=== PATIENT | female | born 1945 | race Caucasian/White ===

== ENCOUNTER 2025-02-15 18:27 | Inpatient (IN) | payer OTHER ==
[~2025-02-15] VITALS: Ht 182.8 cm; Wt 47.3 kg
[~2025-02-15 18:27] MED LIST: AMLODIPINE BES2.5 MG PO; VITAMIN D350 MC2 PO
[2025-02-15 18:37] VITALS: BP 139/52
[2025-02-15] MEDS ORDERED: LORazepam 1 MG TAB PO PRN (18:50)
[2025-02-15] MEDS ORDERED: Ziprasidone Mesylate 20 MG VIAL IM PRN (18:55)
[2025-02-15] MEDS ORDERED: HYDROXYZINE 10 MG/5 ML PO PRN (18:55)
[2025-02-15] MEDS ORDERED: hydrOXYzine hydrochloride 50 MG/ML VIAL IM PRN (18:55)
[2025-02-15] MEDS ORDERED: ACETAMINOPHEN 325 MG TAB PO PRN (19:00)
[2025-02-15] MEDS ORDERED: MG-AL HYDROXIDE/SIMETICONE 30 ML UDC PO PRN (19:00)
[2025-02-15] MEDS ORDERED: hydrOXYzine 50 MG CAP PO PRN (19:00)
[2025-02-15] MEDS ORDERED: Water, Sterile 10 ML VIAL IM PRN (19:00)
[2025-02-15] MEDS ORDERED: Magnesium Hydroxide 30 ML UDC PO PRN (19:00)
[2025-02-15] MEDS ORDERED: Menthol/Zinc Oxide 4 GM THIN T PRN (19:05)
[2025-02-15 19:58] VITALS: BP 139/52
[2025-02-15] MEDS ORDERED: Mirtazapine 15 MG TAB PO SCH (21:00)
[2025-02-16 08:16] VITALS: BP 168/70
[2025-02-16] MEDS ORDERED: CYANOCOBALAMIN 500 MCG TAB PO SCH (09:00)
[2025-02-16] MEDS ORDERED: Rivastigmine Tartrate 4.6 MG/24 HR PATCH T SCH (09:00)
[2025-02-16 20:00] VITALS: BP 118/74
[2025-02-16] MEDS ORDERED: Memantine Hydrochloride 5 MG TAB PO SCH (21:00)
[2025-02-17] MEDS ORDERED: amLODIPine besylate 2.5 MG TAB PO SCH (09:00)
[2025-02-17] MEDS ORDERED: Cholecalciferol 2,000 UNIT TABLET (50 MCG) PO SCH (09:00)
[2025-02-17] MEDS ORDERED: Rivastigmine Tartrate 9.5 MG/24 HR PATCH T SCH (09:00)
[2025-02-17 09:03] VITALS: BP 126/66
[2025-02-17 20:00] VITALS: BP 119/59
[2025-02-18 20:00] VITALS: BP 159/77
[2025-02-19 08:00] VITALS: BP 99/54
[2025-02-19 20:00] VITALS: BP 133/82
[2025-02-20 07:46] VITALS: BP 108/88
[2025-02-20 20:00] VITALS: BP 108/88
[2025-02-20] MEDS ORDERED: Memantine Hydrochloride 5 MG TAB PO SCH (21:00)
[2025-02-21 08:27] VITALS: BP 122/72
[2025-02-21] MEDS ORDERED: RIVASTIGMINE 13.3 MG/24 HR TDM T SCH (09:00)
[2025-02-21 20:00] VITALS: BP 112/60
[2025-02-21] MEDS ORDERED: Memantine Hydrochloride 10 MG TAB PO SCH (21:00)
[2025-02-22 08:00] VITALS: BP 122/76
[2025-02-22 20:00] VITALS: BP 139/61
[2025-02-23 06:56] LABS: BASO % 0.8 % (0.0-1.0); EOS % 1.1 % (1.0-4.0); HEMATOCRIT 35.7 % (37.0-47.0); MEAN CELL VOLUME 91.5 fl (81.0-99.0); MEAN CORPUSCULAR HGB 28.7 pg (27.0-31.0); MEAN CORPUSCULAR HGB CONC 31.4 g/dl (33.0-37.0); MEAN PLATELET VOLUME 8.3 fl (9.6-12.3); MONO # 0.3 10*3/uL (0.1-1.0); NEUT # 1.6 10*3/uL (2.3-7.9); NEUT % 45.4 % (47.0-73.0); PLATELET COUNT AUTOMATED 188 10*3/uL (130-400); RED CELL DISTRI WIDTH 13.3 % (0-14.5); WHITE BLOOD COUNT 3.6 10*3/uL (4.8-10.8)
[2025-02-23 07:49] LABS: ALKALINE PHOSPHATASE 104 U/L (46-116); BUN 21 mg/dl (9-23); CHLORIDE 107 mmol/L (98-107); POTASSIUM 4.4 mmol/L (3.4-5.1); SGPT/ALT 16 U/L (5-49); TOTAL PROTEIN 5.6 gm/dL (6.0-8.0)
[2025-02-23 08:00] VITALS: BP 153/67
[2025-02-23 20:00] VITALS: BP 107/52
[2025-02-24 08:17] VITALS: BP 142/74
[2025-02-24 20:00] VITALS: BP 108/78
[2025-02-25 08:00] VITALS: BP 144/81
[2025-02-25] MEDS ORDERED: MIRTAZAPINE15 M2 PO (08:55)
[2025-02-25] MEDS ORDERED: MEMANTINE HCL10 MG PO (08:55)
[2025-02-25] MEDS ORDERED: PHARMASSURE V500 MCG PO (08:55)
[2025-02-25] MEDS ORDERED: RIVASTIGMINE1 EAC2 T (08:55)
[2025-02-25] MEDS ORDERED: VITAMIN D350 MCG PO (08:55)
== END 2025-02-25 14:05 | disposition home or self-care (01) | DRG 885 ==
LOC: 3N 18:27
PROVIDERS: Counselor Professional; ADMIT Psychiatry & Neurology Psychiatry; ATTEND Psychiatry & Neurology Psychiatry
PROC: GZHZZZZ Group Psychotherapy (ICD-10-PCS; principal; 2025-02-16)
PROC: GZ56ZZZ Individual Psychotherapy, Supportive (ICD-10-PCS; 2025-02-16)
DX: F33.3 Major depressive disorder, recurrent, severe with psychotic symptoms (principal); E44.1 Mild protein-calorie malnutrition; F02.818 Dementia in other diseases classified elsewhere, unspecified severity, with other behavioral disturbance; Z68.1 Body mass index [BMI] 19.9 or less, adult; I10 Essential (primary) hypertension; D72.819 Decreased white blood cell count, unspecified; R73.9 Hyperglycemia, unspecified; D64.9 Anemia, unspecified; G30.9 Alzheimer's disease, unspecified; Z91.041 Radiographic dye allergy status; Z91.040 Latex allergy status; Z85.3 Personal history of malignant neoplasm of breast; Z80.9 Family history of malignant neoplasm, unspecified

== ENCOUNTER 2025-07-09 17:40 | Inpatient (IN) | payer OTHER ==
[~2025-07-09] VITALS: Ht 165.1 cm; Wt 51.7 kg
[~2025-07-09 17:40] MED LIST changes: +MEMANTINE HCL10 MG PO; +MIRTAZAPINE15 M2 PO; +PHARMASSURE V500 MCG PO; +RIVASTIGMINE1 EAC2 T; +VITAMIN D350 MCG PO
[2025-07-09 18:31] VITALS: BP 157/87
[2025-07-09 18:43] LABS: BASO # 0.0 10*3/uL (0.0-0.1); BASO % 0.2 % (0.0-1.0); EOS # 0.0 10*3/uL (0.0-0.4); EOS % 0.2 % (1.0-4.0); MEAN CELL VOLUME 89.8 fl (81.0-99.0); MEAN CORPUSCULAR HGB 27.9 pg (27.0-31.0); MEAN PLATELET VOLUME 8.6 fl (9.6-12.3); MONO # 0.4 10*3/uL (0.1-1.0); MONO % 7.1 % (3.0-9.0); NEUT # 3.8 10*3/uL (2.3-7.9); NEUT % 71.0 % (47.0-73.0); NUCLEATED RED BLOOD CELL 0.0 % (0.0-0.0); NUCLEATED RED BLOOD CELL 0.0 10*3/uL (0.0-0.0); PLATELET COUNT AUTOMATED 221 10*3/uL (130-400); RED CELL DISTRI WIDTH 14.1 % (0-14.5)
[2025-07-09 19:08] LABS: BILIRUBIN Negative (Negative); BLOOD Negative (Negative); CLARITY Clear (Clear); COLOR Yellow (Yellow); KETONE Negative (Negative); LEUKO ESTERASE Negative (Negative); NITRITE Negative (Negative); PH 7.5 (4.5-8.0); SPECIFIC GRAVITY <= 1.005 (1.001-1.030); UROBILINOGEN 0.2 E.U./dl (0.0-1.0)
[2025-07-09 19:12] LABS: URINE AMPHETAMINES Negative (1000ng/ml); URINE BARBITURATES Negative (200ng/ml); URINE BENZODIAZEPINES Negative (200ng/ml); URINE CANNABINOIDS (THC) Negative (50ng/ml); URINE COCAINE Negative (300ng/ml); URINE METHADONE Negative (300ng/ml); URINE OPIATES Negative (300ng/ml); URINE PHENCYCLIDINE Negative (25ng/ml)
[2025-07-09 19:16] LABS: BUN 19 mg/dl (9-23); ETHYL ALCOHOL < 3.0 mg/dl (<3); SGPT/ALT 12 U/L (5-49)
[2025-07-09 19:27] LABS: BACTERIA TRACE; RBC 0-2 rbc/hpf (0-2); WBC 0-2 wbc/hpf (0-5)
[2025-07-09] MEDS ORDERED: RIVASTIGMINE TAR3 M1 PO (21:44)
[2025-07-09] MEDS ORDERED: NAMENDA-5 PO ×2 (21:45)
[2025-07-09] MEDS ORDERED: ATARAX,VISTARIL50 MG PO (21:46)
[2025-07-09] MEDS ORDERED: DULOXETINE HCL60 MG PO (21:48)
[2025-07-09] MEDS ORDERED: LAC-HYDRIN FIV226 GM T (21:50)
[2025-07-09] MEDS ORDERED: hydrOXYzine hydrochloride 50 MG/ML VIAL IM PRN (21:55)
[2025-07-09] MEDS ORDERED: LORazepam 1 MG TAB PO PRN (21:55)
[2025-07-09] MEDS ORDERED: Water, Sterile 10 ML VIAL IM PRN (22:00)
[2025-07-09] MEDS ORDERED: MG-AL HYDROXIDE/SIMETICONE 30 ML UDC PO PRN (22:00)
[2025-07-09] MEDS ORDERED: ACETAMINOPHEN 325 MG TAB PO PRN (22:00)
[2025-07-09] MEDS ORDERED: Menthol/Zinc Oxide 4 GM THIN T PRN (22:10)
[2025-07-09 22:14] VITALS: BP 165/85
[2025-07-09] MEDS ORDERED: AMMONIUM LACTATE 12% LOTION T PRN (22:50)
[2025-07-10 06:51] LABS: LDL CHOLESTEROL 86 mg/dL (9-159)
[2025-07-10 07:17] LABS: VALPROIC ACID (DEPAKENE) < 3.0 ug/ml (50-100)
[2025-07-10 08:24] LABS: VITAMIN D, 25-HYDROXY 30.9 ng/mL (30-100)
[2025-07-10 08:30] VITALS: BP 142/67
[2025-07-10] MEDS ORDERED: Rivastigmine Tartrate 9.5 MG/24 HR PATCH T SCH (09:00)
[2025-07-10] MEDS ORDERED: Cholecalciferol 5,000 IU CAP (125 MCG) PO SCH (12:45)
[2025-07-10] MEDS ORDERED: CYANOCOBALAMIN 1,000 MCG/ML VIAL IM SCH (13:00)
[2025-07-10 20:00] VITALS: BP 139/66
[2025-07-10] MEDS ORDERED: Mirtazapine 15 MG TAB PO SCH (21:00)
[2025-07-11 08:00] VITALS: BP 118/51
[2025-07-11 20:00] VITALS: BP 121/56
[2025-07-12 08:00] VITALS: BP 129/70
[2025-07-12] MEDS ORDERED: RIVASTIGMINE 13.3 MG/24 HR TDM T SCH (09:00)
[2025-07-12 20:00] VITALS: BP 143/70
[2025-07-13 08:00] VITALS: BP 125/69
[2025-07-13 20:00] VITALS: BP 123/68
[2025-07-14 08:31] VITALS: BP 147/69
[2025-07-14 20:00] VITALS: BP 146/78
[2025-07-15 08:00] VITALS: BP 131/67
[2025-07-15 20:44] VITALS: BP 134/73
[2025-07-16 07:56] VITALS: BP 147/70
[2025-07-16 20:00] VITALS: BP 127/75
[2025-07-17 09:05] VITALS: BP 135/61
[2025-07-17] MEDS ORDERED: RIVASTIGMINE1 EAC2 T (13:07)
[2025-07-17] MEDS ORDERED: RISPERIDONE1 M1 BC (13:07)
[2025-07-17] MEDS ORDERED: MEMANTINE HCL10 MG PO (13:07)
[2025-07-17] MEDS ORDERED: MIRTAZAPINE15 M2 PO (13:07)
== END 2025-07-17 13:41 | DRG 885 ==
LOC: ED 17:40 → EDHOLD 19:55 → 3N 19:55
PROVIDERS: Emergency Medicine; ADMIT Psychiatry & Neurology Psychiatry; ATTEND Psychiatry & Neurology Psychiatry
PROC: GZHZZZZ Group Psychotherapy (ICD-10-PCS; principal; 2025-07-10)
DX: F32.3 Major depressive disorder, single episode, severe with psychotic features (principal); G30.9 Alzheimer's disease, unspecified; F02.80 Dementia in other diseases classified elsewhere, unspecified severity, without behavioral disturbance, psychotic disturbance, mood disturbance, and anxiety; E83.52 Hypercalcemia; R74.8 Abnormal levels of other serum enzymes; I10 Essential (primary) hypertension; R00.0 Tachycardia, unspecified; Z91.041 Radiographic dye allergy status; Z91.040 Latex allergy status; Z85.3 Personal history of malignant neoplasm of breast